=== PATIENT | female | born 1950 | race Caucasian/White ===

== ENCOUNTER → 2025-01-20 11:34 | Outpatient (CLI) | payer OTHER, SELFPAY ==
--- NOTE | 2025-01-20 11:36 | DI.RAD.S_ITS ---
PROCEDURE: XR RIBS LT MIN 3V W CXR1V INDICATIONS: Left-sided rib pain after stretching TECHNIQUE: 2 views of the ribs were acquired, along with a single view chest. COMPARISON: None. FINDINGS: Surgical changes and devices: None. Bones and chest wall: No fractures or dislocations. No suspicious bony lesions. Overlying soft tissues appear unremarkable. Lungs and pleura: No pleural effusions or pneumothorax. Lungs appear clear. Mediastinum: Mediastinal contours appear normal. Heart size is normal. IMPRESSION: No gross displaced left rib fracture or pneumothorax. Dictated by: Usman Wallis M.D. on 01/20/2025 at 12:12 Approved by: Usman Wallis M.D. on 01/20/2025 at 12:12
== END ==
LOC: RAD 11:36
PROVIDERS: Referring Provider Physician Assistant Medical; Visit Provider Physician Assistant Medical
DX: R07.81 Pleurodynia (principal)
CPT/HCPCS: 71101